=== PATIENT | female | born 1945 | race Caucasian/White ===

== ENCOUNTER 2019-06-12 20:38 | Inpatient (IN) | payer OTHER, MEDICARE ==
[~2019-06-12] VITALS: Ht 162.6 cm; Wt 81.2 kg
[~2019-06-12 20:38] MED LIST: ASPIRIN325 PO; ASPIRIN81 M2 PO; BUPROPION; BYSTOLIC20 MG PO; DIOVAN320 MG PO; DIOVAN40 MG PO; HYDROXYZINE HCL25 M1 PO; IRON SUPPLEMEN325 MG PO; LOPRESSOR50 PO; MEDROLDOSEPACK PO; MULTI VITAMIN1 EACH PO; NORCO 5-325 TA1 EACH PO; NORVASC5 MG PO; PERCOCET 2.5-31 EACH PO; PERCOCET 5-3251 EACH PO; PRILOSEC40 MG PO; TEKTURNA HCT 11 EACH PO; WELLBUTRIN XL300 MG PO
[2019-06-12 20:45] VITALS: BP 236/98
[2019-06-12] MEDS ORDERED: MICARDIS40 MG PO (20:56)
[2019-06-12] MEDS ORDERED: BUPROPION XL300 MG PO (20:57)
[2019-06-12] MEDS ORDERED: HYDRALAZINE 10M10 MG PO (20:57)
[2019-06-12 21:27] LABS: ABSOLUTE BASOPHILS 0.1 thou/uL (0.0-0.2); ABSOLUTE EOSINOPHILS 0.2 thou/uL (0.0-0.7); ABSOLUTE LYMPHOCYTES 2.6 thou/uL (0.8-5.3); ABSOLUTE MONOCYTES 0.9 thou/uL (0.0-1.2); ABSOLUTE NEUTROPHILS 4.7 thou/uL (1.6-8.1); BASOPHILS 1.3 %; EOSINOPHILS 2.7 %; HEMATOCRIT 41.8 % (37.0-47.0); HEMOGLOBIN 14.1 gm/dL (12.0-15.0); LYMPHOCYTES 30.5 %; MCH 30.7 pg (26.0-34.0); MCHC 33.8 g/dL (28.0-37.0); MCV 90.8 fL (80.0-100.0); MONOCYTES 10.4 %; NUCLEATED RBCS 0 /100WBC; PLATELET COUNT* 325 thou/uL (150-400); POLYS 55.1 %; RDW-CV 12.8 % (10.5-14.5); WBC 8.5 thou/uL (4.0-11.0)
[2019-06-12 21:46] LABS: CALCIUM 9.1 mg/dL (8.5-10.1); CREATININE 1.1 mg/dL (0.6-1.3); POTASSIUM 4.1 mmol/L (3.5-5.1)
[2019-06-12 21:51] LABS: ALBUMIN 3.6 g/dL (3.4-5.0); TOTAL BILIRUBIN 0.2 mg/dL (<0.1-1.0); TOTAL PROTEIN 7.3 g/dL (6.4-8.2)
[2019-06-13] VITALS (45 sets, daily range): BP systolic 118–192; BP diastolic 42–90
[2019-06-13 09:37] LABS: CALCIUM 8.7 mg/dL (8.5-10.1); CREATININE 0.8 mg/dL (0.6-1.3); MAGNESIUM 1.9 mg/dL (1.8-2.4); POTASSIUM 3.8 mmol/L (3.5-5.1)
[2019-06-13 09:43] LABS: HEMATOCRIT 40.9 % (37.0-47.0); HEMOGLOBIN 13.8 gm/dL (12.0-15.0); MCH 30.4 pg (26.0-34.0); MCHC 33.7 g/dL (28.0-37.0); MCV 90.4 fL (80.0-100.0); MPV 8.1 fl. (7.2-11.1); RBC 4.53 mil/uL (4.20-5.00); RDW-CV 13.2 % (10.5-14.5); WBC 10.4 thou/uL (4.0-11.0)
[2019-06-13 09:54] LABS: CHOLESTEROL 179 mg/dL (<200); HDL CHOLESTEROL 43 mg/dL (>40); LDL CHOLESTEROL 119 mg/dL (<100); SERUM ASSESSMENT Clear; TC:HDL 4.2 Ratio (Not establshd); TRIGLYCERIDE 85 mg/dL (<150); VLDL 17 mg/dL (<40)
--- NOTE | 2019-06-13 10:33 | EKG ---
[place] [address] ELECTROCARDIOGRAM REPORT Name: KALEB SIMON Room: [address] ADM IN .R.#: [id number] Admission: 06/12/19 Attend Phys: José Martel Discharge: Date of : 49 Date of Service: 06/12/192054 Report #: [id number] THIS REPORT FOR: //name// [facility] ED Test Date: 2019-06-12 Test Time: 20:55:45 Pat Name: KALEB READAIMEE Department: Room: [facility] Gender: F Junior Graphic Designer: : 1945 Requested By: Mariah Lou Order Number: [id number] MD: Donovan Strange Measurements Intervals [place] Rate: 74 P: 65 OR: 199 QRS: 18 QRSD: 103 T: 39 QT: 399 QTc: 443 Interpretive Statements Sinus rhythm Left atrial enlargement Compared to ECG 02/18/2017 21:22:51 Myocardial infarct finding no longer present Electronically Signed On 06-13-2019 10:32:49 ADAPTED PHYSICAL EDUCATION SPECIALIST by Donovan Strange [email or web address] <ELECTRONICALLY SIGNED> By: Donovan Strange MD, FAC 06/13/19 1032 54 54 Donovan Strange MD, [facility] /EPI
--- NOTE | 2019-06-13 11:00 | 2DMMODE ---
[place] [address] 2 D/M-MODE ECHOCARDIOGRAM Name: KALEB SIMON Room: [address] IN [facility]#: [id number] Admission: 06/12/19 Attend Phys: José Martel Discharge: Date of : 49 Date of Service: 06/13/19 1059 Report #: [id number] THIS REPORT FOR: cc: Kaleb Magallon Linda J. DO Blick,Donovan Ojeda MD [facility] ~ APPROVED REPORT Study performed: 06/13/2019 09:42:22 EXAM: Comprehensive 2D, Doppler, and color-flow Echocardiogram Patient Location: In-Patient Room #: 001 Status: routine BSA: 1.87 HR: 69 bpm BP: 174/71 mmHg Rhythm: NSR Other Information Study Quality: Good Indications CVA/TIA Echo Enhancing Agent Indication: Rule out Shunt Agent(s) / Amount(s) Used: Agitated Saline 10 cc 2D Dimensions IVSd: 11.17 (7-11mm) LVOT Diam: 19.34 (18-24mm) LVDd: 43.65 mm PWd: 8.83 (7-11mm) Ascending Ao: 37.48 (22-36mm) LVDs: 23.82 (25-40mm) Aortic Root: 33.23 mm Volumes Left Atrial Volume (Systole) LA ESV Index: 41.50 mL/m2 Aortic Valve AoV Peak Ronald.: 1.31 m/s AO Peak Gr.: 6.84 mmHg LVOT Max P.16 mmHg AO Mean Gr.: 4.02 mmHg LVOT Mean P.60 [place] [address] 2 D/M-MODE ECHOCARDIOGRAM Name: KALEB SIMON Room: [address] IN ..#: [id number] Admission: 06/12/19 Attend Phys: José Martel Discharge: Date of : 49 Date of Service: 06/13/19 1059 Report #: [id number] LVOT Max V: 1.24 m/s AO V2 VTI: 31.32 cm LVOT Mean V: 0.72 m/s PAMELA (VTI): 2.36 cm2 LVOT V1 VTI: 25.13 cm Mitral Valve E/A Ratio: 0.81 MV Decel. Time: 288.00 ms MV E Max Ronald.: 0.97 m/s MV PHT: 83.52 ms MVA (PHT): 2.63 cm2 TDI E/Lateral E': 16.17 E/Medial E': 13.86 Medial E' Ronald.: 0.07 m/s Lateral E' Ronald.: 0.06 m/s Pulmonary Valve PV Peak Ronald.: 0.74 m/s PV Peak Gr.: 2.17 mmHg Left Ventricle The left ventricle is normal size. There is normal LV segmental wall motion. There is normal left ventricular wall thickness. Left ventricular systolic function is normal. The left ventricular ejection fraction is within the normal range. LVEF is 65-70%. Grade I - abnormal relaxation pattern. Right Ventricle The right ventricle is normal size. The right ventricular systolic function is normal. Atria Left atrium is mild to moderately dilated. The interatrial septum is intact with no evidence for an atrial septal defect. The right atrium size is normal. Aortic Valve Mild aortic valve sclerosis. Mild aortic regurgitation. There is no aortic valvular stenosis. Mitral Valve The mitral valve is normal in structure. Mild mitral regurgitation. No evidence of mitral valve stenosis. Tricuspid Valve The tricuspid valve is normal in structure. Unable to assess PA pressure. Trace [place] [address] 2 D/M-MODE ECHOCARDIOGRAM Name: KALEB SIMON Yasmin Room: [address] IN ..#: [id number] Admission: 06/12/19 Attend Phys: José Martel Discharge: Date of : 49 Date of Service: 06/13/19 1059 Report #: [id number] Pulmonic Valve Pulmonic valve is not well visualized. There is no pulmonic valvular regurgitation. Great Vessels The aortic root is normal in size. IVC is normal in size and collapses >50% with inspiration. Pericardium There is no pericardial effusion. <Conclusion> LVEF is 65-70%. Left atrium is mild to moderately dilated. Mild aortic regurgitation. Mild mitral regurgitation. The interatrial septum is intact with no evidence for an atrial septal defect. <ELECTRONICALLY SIGNED> By: Donovan Strange MD, [facility] 06/13/19 1059 1059 1059 Donovan Strange MD, FACC /INF
[2019-06-14] VITALS: BP 171/76
[2019-06-14 00:35] VITALS: BP 174/84
[2019-06-14 02:07] LABS: GLYCOHEMOGLOBIN (HGB A1C) 5.6 % (4.8-5.6)
[2019-06-14 02:15] VITALS: BP 164/85
[2019-06-14 04:24] VITALS: BP 160/91
[2019-06-14 05:05] LABS: HEMATOCRIT 37.8 % (37.0-47.0); HEMOGLOBIN 12.7 gm/dL (12.0-15.0); MCH 30.5 pg (26.0-34.0); MCHC 33.5 g/dL (28.0-37.0); MCV 90.8 fL (80.0-100.0); MPV 8.1 fl. (7.2-11.1); RBC 4.16 mil/uL (4.20-5.00); RDW-CV 12.9 % (10.5-14.5); WBC 8.5 thou/uL (4.0-11.0)
[2019-06-14 05:17] LABS: CALCIUM 8.1 mg/dL (8.5-10.1); CREATININE 0.8 mg/dL (0.6-1.3); MAGNESIUM 1.9 mg/dL (1.8-2.4); POTASSIUM 3.4 mmol/L (3.5-5.1)
[2019-06-14 11:53] VITALS: BP 213/95
[2019-06-14 16:41] VITALS: BP 188/80
[2019-06-15] VITALS: BP 153/84
[2019-06-15 04:00] VITALS: BP 196/88
[2019-06-15 12:50] VITALS: BP 187/87
[2019-06-15 14:07] LABS: CALCIUM 8.8 mg/dL (8.5-10.1); CREATININE 0.9 mg/dL (0.6-1.3); POTASSIUM 3.6 mmol/L (3.5-5.1)
[2019-06-15 15:57] VITALS: BP 141/68
[2019-06-15 21:52] VITALS: BP 125/58
[2019-06-16] VITALS: BP 152/68
[2019-06-16 04:00] VITALS: BP 190/83
[2019-06-16 12:12] VITALS: BP 164/70
[2019-06-16 13:18] LABS: URINE BILIRUBIN NEGATIVE (Negative); URINE BLOOD NEGATIVE (Negative); URINE CLARITY CLEAR; URINE COLOR YELLOW; URINE GLUCOSE-RANDOM NEGATIVE (Negative); URINE KETONES NEGATIVE (Negative); URINE LEUKOCYTES NEGATIVE (Negative); URINE NITRITE NEGATIVE (Negative); URINE PROTEIN NEGATIVE (Negative); URINE SPECIFIC GRAVITY <= 1.005 (1.005-1.030); URINE UROBILINOGEN 0.2 E.U./dl (0.2-1.0)
[2019-06-17] VITALS: BP 164/53
[2019-06-17 04:00] VITALS: BP 155/78
[2019-06-17 08:39] VITALS: BP 143/82
[2019-06-17] MEDS ORDERED: PLAVIX 75 MG TA75 MG PO (14:29)
[2019-06-17] MEDS ORDERED: HYDRALAZINE 2525 MG PO (14:29)
[2019-06-17] MEDS ORDERED: LIPITOR 20 MG T20 M1 PO (14:30)
[2019-06-17] MEDS ORDERED: ADULT LOW DOSE81 MG PO (14:32)
[2019-06-17] MEDS ORDERED: COZAAR 50 MG TA50 M1 PO (14:32)
[2019-06-17] MEDS ORDERED: HYDROCHLOROTHIA25 M1 PO (14:33)
[2019-06-17 15:04] VITALS: BP 143/82
[2019-06-17 15:08] VITALS: BP 143/82
[2019-06-17] MEDS ORDERED: CATAPRES0.1 MG PO ×2 (23:48→23:50)
== END 2019-06-17 15:40 | disposition home or self-care (01) | DRG 63 ==
LOC: M.ERS 20:38 → M.TBA-ER 22:44 → M.2W 22:44 → M.ICU 22:44 → M.2W 06-14 00:41
PROVIDERS: Emergency Medicine; Internal Medicine; ADMIT Internal Medicine
DX: I63.9 Cerebral infarction, unspecified (principal); F32.9 Major depressive disorder, single episode, unspecified; I10 Essential (primary) hypertension; Z87.891 Personal history of nicotine dependence; Z79.82 Long term (current) use of aspirin; Z79.899 Other long term (current) drug therapy

== ENCOUNTER 2019-06-17 20:44 | Emergency (ER) | payer OTHER, MEDICARE ==
[~2019-06-17] VITALS: Ht 162.6 cm; Wt 77.1 kg
[~2019-06-17 20:44] MED LIST changes: +ADULT LOW DOSE81 MG PO; +BUPROPION XL300 MG PO; +COZAAR 50 MG TA50 M1 PO; +HYDRALAZINE 10M10 MG PO; +HYDRALAZINE 2525 MG PO; +HYDROCHLOROTHIA25 M1 PO; +LIPITOR 20 MG T20 M1 PO; +MICARDIS40 MG PO; +PLAVIX 75 MG TA75 MG PO
[2019-06-17] MEDS ORDERED: CATAPRES0.1 MG PO ×2 (23:48→23:50)
[2019-06-18 00:09] VITALS: BP 138/70
--- NOTE | 2019-06-18 16:28 | EKG ---
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[place] : 1945 Requested By: Mariah Lou Order Number: [id number] MD: Rusty Keene Measurements Intervals [place] Rate: 73 P: 11 NV: 177 QRS: -2 QRSD: 101 T: 7 QT: 420 QTc: 463 Interpretive Statements Sinus rhythm Anteroseptal infarct, age indeterminate, possible Compared to ECG 06/12/2019 20:55:45 Myocardial infarct finding now present Atrial abnormality no longer present Electronically Signed On 06-18-2019 16:27:39 CDT by Rusty Keene [email or web address] <ELECTRONICALLY SIGNED> By: Rusty Keene MD, FAC 06/18/19 1627 09 09 Rusty Keene MD, [facility] /EPI
== END 2019-06-18 00:11 | disposition home or self-care (01) ==
LOC: M.ERS 20:44
DX: I10 Essential (primary) hypertension (principal); Z87.891 Personal history of nicotine dependence; Z98.51 Tubal ligation status